=== PATIENT | male | born 1985 ===

== ENCOUNTER 2018-10-27 14:22 | Emergency (ER) | payer SELFPAY ==
[~2018-10-27] VITALS: Ht 177.8 cm; Wt 72.7 kg
[2018-10-27 14:23] VITALS: BP 125/86
== END 2018-10-27 16:00 | disposition left against medical advice (07) ==
LOC: EMS 14:23
DX: F11.23 Opioid dependence with withdrawal (principal); Z53.21 Procedure and treatment not carried out due to patient leaving prior to being seen by health care provider
CPT/HCPCS: 93005